=== PATIENT | female | born 1950 | race African-American/Black ===

== ENCOUNTER 2018-12-18 10:29 | Emergency (ER) | payer MEDICARE, OTHER ==
[~2018-12-18] VITALS: Ht 167.6 cm; Wt 82.0 kg
[~2018-12-18 10:29] MED LIST: HCTZ PO; POTASSIUM
[2018-12-18] MEDS ORDERED: FAMOTIDINE 20MG TABLET PO ONE (11:45)
[2018-12-18] MEDS ORDERED: PREDNISONE 20MG TABLET PO ONE (11:45)
[2018-12-18] MEDS ORDERED: KETOROLAC 60MG/2ML VIAL IM ONE (11:45)
[2018-12-18] MEDS ORDERED: HYDROXYZINE 25MG TABLET PO ONE (11:45)
[2018-12-18 11:57] VITALS: BP 116/74
== END 2018-12-18 12:05 | disposition home or self-care (01) ==
LOC: ER 10:29
DX: L50.9 Urticaria, unspecified (principal); I10 Essential (primary) hypertension; Z88.2 Allergy status to sulfonamides; Z91.041 Radiographic dye allergy status; Z98.890 Other specified postprocedural states
CPT/HCPCS: 96372; 99284; J1885; J7512

== ENCOUNTER 2019-08-16 15:10 | Emergency (ER) | payer MEDICARE, OTHER ==
[~2019-08-16] VITALS: Ht 167.6 cm; Wt 73.0 kg
[2019-08-16 15:29] VITALS: BP 144/86
== END 2019-08-16 18:37 | disposition home or self-care (01) ==
LOC: ER 15:10
DX: J06.9 Acute upper respiratory infection, unspecified (principal); J04.0 Acute laryngitis; I10 Essential (primary) hypertension; Z88.2 Allergy status to sulfonamides; Z88.8 Allergy status to other drugs, medicaments and biological substances; Z90.710 Acquired absence of both cervix and uterus
CPT/HCPCS: 99283